=== PATIENT | female | born 1980 | race Caucasian/White ===

== ENCOUNTER 2017-01-24 04:04 | Inpatient (IN) | payer BC ==
[2017-01-24] MEDS ORDERED: ceFAZolin 2 GM PREMIX (*) 0 GM/0 ML BAG IVPB ONE (06:47)
[2017-01-24] MEDS ORDERED: ceFOXitin 2 GM IVPREMIX* 2 GM/50 ML BAG ONE (06:50)
[2017-01-24] MEDS ORDERED: Sodium Citrate/Citric Acid* 15 ML UDC ONE (07:47)
[2017-01-24] MEDS ORDERED: Morphine PF AMP (0.5MG/ML)* 5 MG/10 ML AMP ONE (07:52)
[2017-01-24] MEDS ORDERED: Phenylephrine IV* 40 MCG/ML 10 ML SYRINGE ONE (08:28)
[2017-01-24] MEDS ORDERED: OXYTOCIN* 10 UNITS/ML 1 ML VIAL ONE (08:28)
[2017-01-24] MEDS ORDERED: Scopolamine 1.5 mg* PATCH TRANSDERM PRN (08:44)
[2017-01-24] MEDS ORDERED: fentaNYL* 50 MCG/ML 2 ML VIAL (100 MCG VIAL) IV PRN (08:44)
[2017-01-24] MEDS ORDERED: Ondansetron INJ* 2 MG/ML VIAL IV PRN ×2 (08:44→08:47)
[2017-01-24] MEDS ORDERED: DiMENhydriNATE IV* 50 MG/ML VIAL IV PUSH PRN ×2 (08:44→08:47)
[2017-01-24] MEDS ORDERED: HYDROcodone/ACETAMIN 5-325 MG* 1 TAB PO PRN (08:44)
[2017-01-24] MEDS ORDERED: HYDROmorphone INJ* 1 MG/ML CARPUJECT SYRINGE IV PRN (08:44)
[2017-01-24] MEDS ORDERED: oxyCODONE TAB* 5 MG TAB PO PRN (08:44)
[2017-01-24] MEDS ORDERED: Buffered Lidocaine 0.9% SYRIN* 5 ML/SYR SYRINGE INTRADERM ONE (08:46)
[2017-01-24] MEDS ORDERED: Sodium Citrate/Citric Acid* 15 ML UDC PO ONE (08:46)
[2017-01-24] MEDS ORDERED: Naloxone* 2 MG in NS 0.9% 250 ML* 250 ML IV PRN (08:47)
[2017-01-24] MEDS ORDERED: oxyCODONE/Acetamin 5/325 MG* TAB PO PRN (08:47)
[2017-01-24] MEDS ORDERED: Naloxone* 0.4 MG/ML 1 ML VIAL IV PRN (08:47)
[2017-01-24] MEDS ORDERED: Ketorolac INJ* 30 MG/ML 1 ML VIAL ONE (08:54)
[2017-01-24] MEDS ORDERED: Ondansetron INJ* 2 MG/ML VIAL ONE (08:56)
[2017-01-24] MEDS ORDERED: Witch Hazel PAD* JAR TOPICAL PRN (09:33)
[2017-01-24] MEDS ORDERED: Glycerin ADULT SUPP PR PRN (09:33)
[2017-01-24] MEDS ORDERED: Dibucaine 1% 28.35 GM TUBE PR PRN (09:33)
[2017-01-24] MEDS ORDERED: Oxytocin in LR* 20 UNITS/1,000 ML BAG IVPB SCH (10:00)
[2017-01-24] MEDS: diPHENhydraMINE IV* 50 MG/ML 1 ml VIAL (BENADRYL) IV PRN ×3 (10:39→22:47)
[2017-01-24] MEDS: HYDROcodone/ACETAMIN 5-325 MG* 1 TAB PO PRN ×3 (10:53→20:20)
[2017-01-24] MEDS: Nalbuphine* 20 MG/ML 1 ML VIAL IV PRN ×2 (13:14→19:26)
[2017-01-24] MEDS: Simethicone TAB* 80 MG TAB.CHEW PO SCH ×3 (13:40→22:42)
[2017-01-24] MEDS: Ketorolac INJ* 30 MG/ML 1 ML VIAL IV PRN ×2 (16:26→22:47)
[2017-01-24] MEDS: Docusate CAP* 100 MG PO SCH ×2 (20:15→20:21)
[2017-01-25] MEDS ORDERED: Acetaminophen TAB* 325 MG PO PRN (00:47)
[2017-01-25] MEDS: oxyCODONE/Acetamin 5/325 MG* TAB PO PRN ×6 (01:05→23:47)
--- NOTE | 2017-01-25 01:36 | OP ---
OPERATIVE REPORT: DATE OF OPERATION: 01/24/17 DATE OF : 82 SURGEON: Augusta Dorantes MD THERMOPLASTIC TECHNICIAN: Luiz Barth MD PRE-OP DIAGNOSES: Intrauterine at 39 plus weeks, desires repeat section and anahy res permanent sterility. POST-OP DIAGNOSES: Intrauterine at 39 plus weeks, desires repeat section and aynique ires permanent sterility. Delivered. OPERATIVE PROCEDURE: Repeat low transverse section and bilateral fallopian tube fimbriecto my. ESTIMATED BLOOD LOSS: 800 cc. URINE OUTPUT: 200 cc of clear yellow urine. FLUIDS: 2500 cc of crystalloid. FINDINGS: Revealed vertex male , Apgars 9 at 1 minute and 9 at 5 minutes. Weight 7 pounds 8 o unces. No nuchal cord. No meconium. Placenta manually extracted. Three-vessel cord intact. Uter us normal appearance. Uterine cavity without evidence of retained membranes or placental tissue. N ormal appearing tubes and ovaries bilaterally. COMPLICATIONS: None apparent. DISPOSITION: Stable to recovery room. DESCRIPTION OF PROCEDURE: The patient placed in dorsal lithotomy position. The abdomen was prepped and draped in a sterile standard fashion. Anesthesia was tested to appropriate level. The patient was identified with universal protocol. Incision was made through the prior incision. This was car ried down through the fascia. Fascia was scored in the midline and extended laterally and superiorl y using Etienne scissors, bluntly and sharply, superiorly and inferiorly and the peritoneum w as then entered bluntly. The peritoneal incision was extended bluntly. The bladder blade was inser rosa. Lower uterine segment was identified, tented up with an Allis and incision was made with scalp el. This was carried down through to membrane. The incision was extended laterally and superiorly using bandage scissors. Amniotomy was created for clear fluid. The head was delivered vertex. No nuchal cord. Anterior and posterior shoulder delivered. Cord was allowed to pulse for approximatel y 60 seconds, then clamped and then the cord was cut. Appropriate cord blood was obtained. The inf ant was handed off to awaiting hiv counselor. Placenta was then manually extracted. Uterus was ext eriorized. The uterine cavity was wiped clean and noted to be fee of any membranes or placental tiss ue. Uterine incision itself was reapproximated in 2 layers, the first layer running locked, second layer running imbricated 0 Vicryl of figure-of- eight in the midline and was placed for hemostasis. Attention was then focussed to the tubal ligation. The right tube was approached first, clamped ac ross the base of the mesosalpinx to incorporate the fimbria. 0 Vicryl x2 was applied, first was lig ature suture and the second was Tomer for complete approximation of the distal end of the tube. Th e fimbria was then excised with Metzenbaum scissors. The same approach was used on the left distal fallopian tube with removal of the fimbria using 0 Vicryl free tie and Tomer stitch. The uterus w as returned intraabdominally. Colic gutters were lavaged. Hemostasis was assured at the hysterotom y site. The peritoneum was reapproximated using 3-0 Vicryl in a running fashion. The prefascial ar ea was visualized and noted to be hemostatic. The fascia itself was reapproximated using 0 Vicryl x 2 in a running fashion. The subcu was lavaged. Hemostasis was assured with Bovie coagulation. The Camper's fascia was reapproximated using 3-0 Vicryl in an interrupted fashion. The skin was then r eapproximated with 4-0 Monocryl in a subcuticular fashion. Mastisol and Steri- Strips were applied. All sponge, needle, instrument, and blade counts were correct throughout the entire case. The [facility] ient was taken to recovery room in stable condition. [id number]/[facility] #: [id number]
[2017-01-25] MEDS: diPHENhydraMINE PO* 50 MG PO PRN ×3 (02:00→16:01)
[2017-01-25] MEDS: Ibuprofen TAB* 600 MG PO PRN ×3 (08:11→20:41)
[2017-01-25] MEDS: Docusate CAP* 100 MG PO SCH ×3 (08:46→19:46)
[2017-01-25] MEDS: Simethicone TAB* 80 MG TAB.CHEW PO SCH ×4 (08:46→21:53)
[2017-01-25 09:46] LABS: Hematocrit 29 % (35-47); Hemoglobin 9.2 g/dl (12.0-16.0); Mean Corpuscular HGB Conc 32 g/dl (31-36); Mean Corpuscular Hemoglobin 21 pg (27-31); Mean Platelet Volume 8 um3 (7.4-10.4); Red Blood Count 4.39 10^6/ul (4.0-5.4); Red Cell Distribution Width 18 % (10.5-15); White Blood Count 12.4 10^3/ul (3.5-10.8)
[2017-01-25 09:48] LABS: Comments Flag Yes; Mean Corpuscular Volume 65 fL (80-97)
[2017-01-25] MEDS: Ferrous Gluconate TAB* 324 MG TAB PO SCH ×2 (10:10→20:41)
[2017-01-26] MEDS: oxyCODONE/Acetamin 5/325 MG* TAB PO PRN ×7 (00:13→22:30)
[2017-01-26] MEDS: diPHENhydraMINE PO* 50 MG PO PRN ×4 (00:16→22:30)
[2017-01-26] MEDS: Ibuprofen TAB* 600 MG PO PRN ×3 (07:43→19:48)
[2017-01-26] MEDS: Simethicone TAB* 80 MG TAB.CHEW PO SCH ×4 (09:52→19:48)
[2017-01-26] MEDS: Docusate CAP* 100 MG PO SCH ×3 (09:52→19:48)
[2017-01-26] MEDS: Ferrous Gluconate TAB* 324 MG TAB PO SCH ×2 (10:36→19:48)
[2017-01-27] MEDS: Ibuprofen TAB* 600 MG PO PRN ×3 (01:55→15:19)
[2017-01-27] MEDS: oxyCODONE/Acetamin 5/325 MG* TAB PO PRN ×4 (01:55→15:20)
[2017-01-27] MEDS ORDERED: Ondansetron ODT TAB* 4 MG PO PRN (01:56)
[2017-01-27] MEDS: diPHENhydraMINE PO* 50 MG PO PRN (06:03)
[2017-01-27] MEDS ORDERED: Gabapentin CAP(*) 100 MG PO ONE (06:18)
[2017-01-27 08:05] VITALS: BP 114/61
[2017-01-27] MEDS ORDERED: Scopolomine PATCH Remove* 1 NOTE MISC PATCH OFF ONE (08:45)
[2017-01-27] MEDS: Simethicone TAB* 80 MG TAB.CHEW PO SCH (09:00)
[2017-01-27] MEDS: Ferrous Gluconate TAB* 324 MG TAB PO SCH (09:00)
[2017-01-27] MEDS: Docusate CAP* 100 MG PO SCH (09:48)
== END 2017-01-27 15:52 | disposition home or self-care (01) | DRG 540 ==
LOC: MCHOB 04:04 → UNDOADMIN 04:04 → MCHOB 06:13
PROVIDERS: ADMIT Obstetrics & Gynecology; ATTEND Obstetrics & Gynecology
PROC: 4A1HXCZ Monitoring of Products of Conception, Cardiac Rate, External Approach (ICD-10-PCS; 2017-01-24)
PROC: 0UB70ZZ Excision of Bilateral Fallopian Tubes, Open Approach (ICD-10-PCS; 2017-01-24)
PROC: 10D00Z1 Extraction of Products of Conception, Low, Open Approach (ICD-10-PCS; principal; 2017-01-24 07:45)
DX: O34.219 Maternal care for unspecified type scar from previous cesarean delivery (principal); O75.3 Other infection during labor; N39.0 Urinary tract infection, site not specified; Z68.41 Body mass index [BMI] 40.0-44.9, adult; O99.844 Bariatric surgery status complicating childbirth; D64.9 Anemia, unspecified; O99.02 Anemia complicating childbirth; O99.214 Obesity complicating childbirth; E66.9 Obesity, unspecified; Z30.2 Encounter for sterilization; Z3A.39 39 weeks gestation of pregnancy; Z37.0 Single live birth; Z87.891 Personal history of nicotine dependence
CPT/HCPCS: 36415; 85025; 88302; A9270-GY; J0690; J0694; J1200; J1885; J2300; J2405; J2590

== ENCOUNTER 2017-05-08 08:59 | Emergency (ER) | payer BC ==
[2017-05-08 09:15] VITALS: BP 126/70
--- NOTE | 2017-05-08 09:44 | UC ---
Throat Pain/Nasal Itz HPI - HPI Summary HPI Summary: Patient presents with complaints of sore throat and right ear pain for 2 days. She denies fever, chills, nausea, vomiting, diarrhea, abdominal or chest pain. She states her throat pain has gotten worse each day. She is able to eat, drink and handle her own sections. - History of Current Complaint Chief Complaint: UCGeneralIllness Stated Complaint: SORE THROAT HEADACHE EAR PAIN Time Seen by Provider: 05/08/17 09:27 Hx Obtained From: Patient Hx Last Menstrual Period: 05/07/17 Onset/Duration: Gradual Onset, Lasting Days Severity: Moderate Pain Intensity: 9 Cough: None Associated Signs & Symptoms: Positive: Nasal Discharge - Epiglottits Risk Factors Epiglottis Risk Factors: Negative - Allergies/Home Medications Allergies/Adverse Reactions: Allergies Allergy/AdvReac Type Severity Reaction Status Date / Time No Known Allergies Allergy Verified 05/08/17 09:10 PMH/Surg Hx/FS Hx/Imm Hx Previously Healthy: Yes Other History Of: Negative For: Anticoagulant Therapy - Surgical History Surgical History: Yes Surgery Procedure, Year, and Place: GASTRIC BYPASS 2009 - Family History Known Family History: Negative: Cardiac Disease - Social History Occupation: Employed Full-time Lives: With Family Alcohol Use: None Substance Use Type: None Smoking Status (MU): Former Smoker - Immunization History Most Recent Influenza Vaccination: 12/20/16 Most Recent Pneumonia Vaccination: Unknown Review of Systems Constitutional: Negative Skin: Negative Eyes: Negative ENT: Sore Throat, Ear Ache Respiratory: Negative Cardiovascular: Negative Gastrointestinal: Negative Genitourinary: Negative Motor: Negative Neurovascular: Negative Musculoskeletal: Negative Neurological: Negative Psychological: Negative Is Patient Immunocompromised?: No All Other Systems Reviewed And Are Negative: Yes Physical Exam Triage Information Reviewed: Yes Appearance: Well-Appearing Vital Signs: Initial Vital Signs Temp 98 F 05/08/17 09:11 Pulse 90 05/08/17 09:11 Resp 18 05/08/17 09:11 BP 126/70 05/08/17 09:11 Pulse Ox 98 05/08/17 09:11 Vital Signs Reviewed: Yes Eye Exam: Normal ENT Exam: Normal ENT: Positive: Pharyngeal erythema, Other - tonsilar nodes 2+ and equal. Neck exam: Normal Neck: Positive: 1 Respiratory Exam: Normal Respiratory: Positive: Lungs clear, Normal breath sounds, No respiratory distress Cardiovascular Exam: Normal Cardiovascular: Positive: RRR, No Murmur Abdominal Exam: Normal Musculoskeletal Exam: Normal Neurological Exam: Normal Psychological Exam: Normal Skin Exam: Normal Throat Pain/Nasal Course/Dx - Course Course Of Treatment: Patient presents with complaints of painful sore throat x 2 days. Normal vital signs and nontoxic appearance. Clinical findings are consistent with pharyngitis and she will be treated with Amoxicillin 500 mg by mouth three times daily for 10 days. She was discharged in stable condition. - Differential Dx/Diagnosis Differential Diagnosis/HQI/PQRI: Pharyngitis Provider Diagnoses: pharyngitis Discharge - Discharge Plan Condition: Stable Disposition: HOME Prescriptions: Amoxicillin PO (*) [Amoxicillin 500 MG CAP*] 500 mg PO TID #30 cap Patient Education Materials: Pharyngitis (ED) Referrals: No Primary Care Phys,NOPCP [Primary Care Provider] -
== END 2017-05-08 09:41 | disposition home or self-care (01) ==
LOC: UCEAST 08:59
DX: J02.9 Acute pharyngitis, unspecified (principal); H92.01 Otalgia, right ear; Z98.84 Bariatric surgery status; Z87.891 Personal history of nicotine dependence
CPT/HCPCS: 99211; G0463

== ENCOUNTER 2018-03-12 13:35 | Inpatient (IN) | payer BC ==
[2018-03-12] MEDS ORDERED: Nicotine Inhaler* 10 MG AMP INH PRN (13:57)
--- NOTE | 2018-03-12 14:29 | ED ---
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 The patient feels like she is in a dream and exhibits a flat affect when she talks. Patient reports fatigue, past trauma, and photophobia. Pt states that she took 12 extra strength NyQuil and 15 (.5) Clonazepam earlier today. The pts last suicide attempt was as a child, but she says she, did it for attention the last time. She was last admitted to a psych hospital as a child. She states that the reason she is this sad is because of past and present relationship trauma in addition to severe depression. She states that she is going to therapy and has been taking medication for the last 3 weeks. PMHX Depression. SHX Two children. Home Medications Medication Instructions Recorded Confirmed Type Ibuprofen TAB* [Motrin TAB* 600 MG] 600 mg PO Q6H PRN #30 tab 01/27/17 05/08/17 Rx Amoxicillin PO (*) [Amoxicillin 500 mg PO TID #30 cap 05/08/17 Rx 500 MG CAP*] - History Of Current Complaint Chief Complaint: EDOverdose Time Seen by Provider: 03/12/18 13:51 Hx Obtained From: Patient Hx Last Menstrual Period: 05/07/17 Onset/Duration: Sudden Onset Timing: Constant Severity Initially: Severe Severity Currently: Mild Character: Depressed Aggravating Factor(s): Recent Stress Related History: Positive For: Prior Psychiatric Issues - depression, past suicide attempt Has Suicidal: Reports: Demonstrates Gesture, Has Prior Attempt(s) Ingestion History: Type/Name Of Drug - clonazepam and nyquil - Allergies/Home Medications Allergies/Adverse Reactions: Allergies Allergy/AdvReac Type Severity Reaction Status Date / Time No Known Allergies Allergy Verified 05/08/17 09:10 PMH/Surg Hx/FS Hx/Imm Hx Endocrine/Hematology History: Denies: Hx Anticoagulant Therapy, Hx Diabetes, Hx Thyroid Disease Cardiovascular History: Denies: Hx Congestive Heart Failure, Hx Hypertension Respiratory History: Denies: Hx Asthma, Hx Chronic Obstructive Pulmonary Disease (COPD) GI History: Reports: Other GI Disorders - S/P GASTRIC BYPASS 2010 Denies: Hx Ulcer History: Reports: Hx Kidney Stones Denies: Hx Renal Disease, Other Problems/Disorders Sensory History: Denies: Hx Contacts or Glasses, Hx Hearing Aid Opthamlomology History: Denies: Hx Contacts or Glasses Psychiatric History: Reports: Hx Anxiety, Hx Eating Disorder, Hx Depression - Surgical History Surgery Procedure, Year, and Place: GASTRIC BYPASS 2010 Hx Anesthesia Reactions: No Infectious Disease History: No Infectious Disease History: Denies: Hx Hepatitis, Hx Human Immunodeficiency Virus (HIV), Traveled Outside the [place] in Last 30 Days - Family History Known Family History: Negative: Cardiac Disease - Social History Alcohol Use: None Substance Use Type: Reports: None Smoking Status (MU): Former Smoker Review of Systems Positive: Fatigue Positive: Photophobia Positive: Depressed All Other Systems Reviewed And Are Negative: Yes Physical Exam - Summary Physical Exam Summary: GENERAL: Patient is a well-developed and nourished female who is lying comfortable in the stretcher. Patient is not in any acute respiratory distress. HEAD AND FACE: Normocephalic EYES: PERRLA, EOMI x 2. EARS: Hearing grossly intact. MOUTH: Oropharynx within normal limits. NECK: Supple, trachea is midline, no adenopathy, no JVD, no carotid bruit. CHEST: Symmetric, no tenderness at palpation LUNGS: Clear to auscultation bilaterally. No wheezing or crackles. CVS: Regular rate and rhythm, S1 and S2 present, no murmurs or gallops appreciated. ABDOMEN: Soft, non-tender. Bowel sounds are normal. No abdominal abnormal pulsations. EXTREMITIES: Full ROM in all major joints, no edema, no cyanosis or clubbing. NEURO: Alert and oriented x 3. No acute neurological deficits. Speech is normal and follows commands. SKIN: Dry and warm PSYCH: sad affect, positive SI with attempt, no HI Triage Information Reviewed: Yes Vital Signs On Initial Exam: Initial Vitals Temp Pulse Resp BP Pulse Ox 97.4 F 77 16 138/81 93 03/12/18 13:49 03/12/18 13:49 03/12/18 13:49 03/12/18 13:49 03/12/18 13:49 Vital Signs Reviewed: Yes Diagnostics - Vital Signs Vital Signs Temp Pulse Resp BP Pulse Ox 03/12/18 13:49 97.4 F 77 16 138/81 93 - Laboratory Result Diagrams: 03/12/18 14:21 03/12/18 14:21 Lab Statement: Any lab studies that have been ordered have been reviewed, and results considered in the medical decision making process. - EKG 14:02 Cardiac Rate: NL - 73 bpm EKG Rhythm: Sinus Rhythm Summary of EKG Findings: Normal intervals Re-Evaluation - Re-Evaluation First Eval Re-Evaluation Time: 15:15 Comment: The patient's tylenol is at 105, 3 hours after injection. Based on nomogram, NAC is not needed at this time. Will repeat the Tylenol at 4:15, but the patient has been cleared for admission by Dr. Da Silva. 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 The patient feels like she is in a dream and exhibits a flat affect when she talks. Patient reports fatigue, past trauma, and photophobia. An EKG reveals NSR 73 bpm, Normal intervals. Test results with no significant abnormalities except Acetaminophen 106 H. In the ED course the patient was given a Nicotine inhaler. We discussed patient care with Dr Da Silva, hospitalist and they recommended admission. The patient is agreeable with this plan. - Differential Dx/Clinical Impression Provider Diagnosis: Intentional overdose of drug in tablet form - Physician Notifications Discussed Care Of Patient With: Sujey Da Silva Time Discussed With Above Provider: 15:20 Instructed by Provider To: Admit As Inpatient Discharge - Sign-Out/Discharge Documenting (check all that apply): Patient Departure - admission - Discharge Plan Condition: Stable Disposition: ADMITTED TO [facility] - Billing Disposition and Condition Condition: STABLE Disposition: Admitted to [facility] - Attestation Statements Document Initiated by Maiiblynn: Yes Documenting Scribe: Caleb Arceo Provider For Whom Alma is Documenting (Include Credential): Nikkie Enciso MD Scribe Attestation: Caleb Rios scribed for Nikkie Enciso MD on 03/12/18 at 1759. Scribe Documentation Reviewed: Yes Provider Attestation: The documentation as recorded by the Caleb godwin accurately reflects the service I personally performed and the decisions made by me, Nikkie Enciso MD Status of Scribe Document: Viewed
[2018-03-12 14:34] LABS: ABS Basophils 0 10^3/ul (0-0.2); ABS Eosinophils 0.1 10^3/ul (0-0.6); ABS Lymphocytes 1.3 10^3/ul (1.0-4.8); ABS Monocytes 0.5 10^3/ul (0-0.8); ABS Neutrophils 5.2 10^3/ul (1.5-7.7); ABS Nucleated RBC 0 10^3/ul; Hematocrit 32 % (35-47); Hemoglobin 9.9 g/dl (12.0-16.0); Lymphocyte % 18.7 %; Mean Corpuscular HGB Conc 31 g/dl (31-36); Mean Corpuscular Hemoglobin 19 pg (27-31); Mean Corpuscular Volume 61 fL (80-97); Mean Platelet Volume 9.3 fL (7.4-10.4); Nucleated Red Blood Cells % 0; Platelet Count 375 10^3/ul (150-450); Red Blood Count 5.28 10^6/ul (4.00-5.40); Red Cell Distribution Width 19 % (10.5-15); White Blood Count 7.2 10^3/ul (3.5-10.8)
[2018-03-12 14:51] LABS: EGFR Non-African American 83.6 (>60)
[2018-03-12] MEDS ORDERED: Docusate CAP* 100 MG PO PRN (17:03)
[2018-03-12] MEDS ORDERED: Al Hydrox/Mg Hydrox/Simet LIQ* 30 ML UDC PO PRN (17:03)
[2018-03-12] MEDS ORDERED: Senna TAB PO PRN (17:03)
[2018-03-12 17:05] LABS: Urine Appearance Cloudy; Urine Blood 3+ (Negative); Urine Color Amber; Urine Ketones 1+ (Negative); Urine Protein 2+(100 mg/dL) (Negative); Urine Red Blood Cell 3+(>10/hpf) (Absent); Urine Specific Gravity 1.043 (1.010-1.030); Urine Urobilinogen Negative (Negative); Urine White Blood Cell Trace(0-5/hpf) (Absent)
[2018-03-12] MEDS ORDERED: Acetylcysteine IV* 10,000 MG in D5W 1000 ML BAG* 1,000 ML IVPB ONE (17:09)
[2018-03-12] MEDS ORDERED: Acetylcysteine IV* 5,000 MG in D5W 500 ML BAG* 500 ML IVPB ONE ×2 (17:09→20:45)
[2018-03-12] MEDS ORDERED: Acetylcysteine IV* 15,000 MG in D5W 250 ML BAG* 200 ML IVPB ONE (17:09)
[2018-03-12] MEDS: NS 0.9% 1000 ML* 1,000 ML IV SCH ×2 (18:40→22:36)
[2018-03-12] MEDS: Ondansetron INJ* 2 MG/ML VIAL IV PRN (20:46)
[2018-03-12] MEDS ORDERED: Albuterol/Ipratropium NEB.SOL* Albuterol 2.5 MG/Ipratropium 0.5 MG 3 ML ONE (23:39)
[2018-03-12] MEDS ORDERED: Albuterol 2.5 MG/3 ML NEB.SOL* (0.083%) INH ONE (23:39)
[2018-03-13] MEDS ORDERED: Acetylcysteine IV* 10,000 MG in D5W 1000 ML BAG* 1,000 ML IVPB ONE (00:45)
--- NOTE | 2018-03-13 02:06 | HP ---
CC: Yessy Gerber MD * HISTORY AND PHYSICAL: DATE OF ADMISSION: 03/12/18 PRIMARY CARE PHYSICIAN: Yessy Gerber MD CHIEF COMPLAINT: Overdose. HISTORY OF PRESENT ILLNESS: This is a 37-year-old female with past medical history of depression, remote history of suicide attempt, who presented to the emergency room after having a suicide attempt with overdose. The patient is sedated, but is able to wake up and act appropriately. She states around 3 in the morning, she took 8 tablets of Klonopin. She is not sure what the milligram dose was and then went back to bed, woke up again and took an entire box of extra strength NyQuil and the rest of the bottle of her clonazepam. She is not exactly sure of what time she took the NyQuil dose. She states that she is unhappy and this was an attempt to kill herself. She was nauseated and vomiting on the way here, no longer. No further diarrhea. No chest pain. No shortness of breath. She states she just feels out of it and very tired. She denies any verbal or physical abuse at home. She sees a psychologist who she states prescribed her the Klonopin, which she rarely takes prior to this. She states she does have a good support system at home that she is just unhappy. Otherwise, review of systems is negative. In the emergency room, the patient had labs, imaging. Poison Control was contacted and was referred to the hospitalist service for further evaluation. PAST MEDICAL HISTORY: 1. Remote history of suicide attempt, attempting with slitting her wrist. 2. Depression. MEDICATIONS: The patient takes a depression medication, she is not sure which and clonazepam as needed. ALLERGIES: No known drug allergies. SOCIAL HISTORY: The patient lives at home with her fiance, Varun, and her 2 children, 10-year-old and 1-year-old. Her healthcare proxy is her father and her fiance. No history of alcohol or illicit drug use. Code status is full code. She is a former smoker. FAMILY HISTORY: Her parents are alive and healthy. REVIEW OF SYSTEMS: A 14-point review of systems as mentioned in the HPI, otherwise negative. Also, of note, her last menstrual period was on 03/04/18, she states she gets heavy menses. PHYSICAL EXAMINATION GENERAL: No acute distress, resting comfortably. VITAL SIGNS: Temp 98.7, pulse rate 67, respiratory rate 22, oxygen saturation 97 % on room air, blood pressure 121/69. HEENT: Head: Normocephalic. Pupils are dilated and reactive. Conjunctivae injected. Oropharynx: Mucous membranes are moist. NECK: Supple. No lymphadenopathy. RESPIRATORY: Clear to auscultation. No wheezes, rhonchi, or rales. CARDIAC: Regular rate and rhythm. Soft systolic murmur heard throughout. ABDOMEN: Soft, nontender, nondistended. EXTREMITIES: No clubbing, cyanosis or edema. +2 DPs. NEUROLOGICAL: Alert and oriented x3. No gross focal neurologic deficits. DIAGNOSTIC STUDIES/LABORATORY DATA: White count 7.2, hemoglobin 9.9, hematocrit 32, platelets 375. Sodium 138, potassium 3.6, chloride 108, bicarb 24, BUN 12, creatinine 0.78, glucose 93. TSH 2.52. Beta-hCG less than 6. Radiographic Data: EKG shows normal sinus rhythm, a QTc of 435. ASSESSMENT: This is a 37-year-old female with past medical history of depression and suicide attempt who presented to the emergency room after having an intentional overdose. 1. Intentional overdose. Assessment: The patient's Tylenol level was initially 106, repeat 2 hours later was 74, positive for cannabinoids as well. Remaining tox screen was negative. Because of the concern of unclear when she took the NyQuil. Based on the nomogram, I am going to start her on N-acetyl cysteine protocol. Plan will be admit to ICU for the N-acetyl cysteine. She needs labs drawn 16 hours once the infusion is started. We will order a CBC, CMP for that time. We will also have a constant baggage porter with her, Social Work consult and Psych consult for when she is medically cleared. 2. Chronic medical problems. Depression. We will obtain a med rec to determine what she is taking and determine if it is safe in the setting of her overdose and follow up with Psych's recommendations. 3. FEN: The patient scores low risk. We will place her on SCDs. 4. Code status: Full code. PATIENT TIME: Greater than 40 minutes was spent doing the history and physical , more than half the time was spent in direct patient contact. [id number]/[facility] #: [id number] MISSY
[2018-03-13] MEDS: NS 0.9% 1000 ML* 1,000 ML IV SCH ×3 (06:02→22:18)
[2018-03-13] MEDS: Ondansetron INJ* 2 MG/ML VIAL IV PRN (10:36)
[2018-03-13] MEDS: Ibuprofen TAB* 600 MG PO PRN (10:41)
--- NOTE | 2018-03-13 16:35 | PN ---
Subjective Date of Service: 03/13/18 Interval History: Minor somatic complaints. Ate well Objective Active Medications: Al Hydrox/Mg Hydrox/Simethicone (Maalox Plus*) 30 ml PO Q6H PRN PRN Reason: INDIGESTION Docusate Sodium (Colace Cap*) 100 mg PO BID PRN PRN Reason: CONSTIPATION Sodium Chloride (Ns 0.9% 1000 Ml*) 1,000 mls @ 125 mls/hr IV PER RATE MEENAKSHI Last Admin: 03/13/18 13:56 Dose: 125 mls/hr Acetylcysteine 10,000 mg/ (Dextrose) 1,050 mls @ 65.625 mls/hr IVPB ONCE ONE Stop: 03/13/18 16:44 Last Admin: 03/13/18 03:01 Dose: 65.625 mls/hr Ibuprofen (Motrin Tab*) 600 mg PO Q8H PRN PRN Reason: PAIN Last Admin: 03/13/18 10:41 Dose: 600 mg Influenza Virus Vaccine (Fluarix *Quad* *) 0.5 ml IM .ONCE ONE Stop: 03/14/18 09:01 Nicotine (Nicotine Inhaler*) 10 mg INH Q2H PRN PRN Reason: CRAVING Ondansetron HCl (Zofran Inj*) 4 mg IV Q4H PRN PRN Reason: NAUSEA/VOMITING Last Admin: 03/13/18 10:36 Dose: 4 mg Senna (Senokot Tab*) 1 tab PO BID PRN PRN Reason: CONSTIPATION Vital Signs - 8 hr 03/13/18 03/13/18 03/13/18 09:00 10:00 11:00 Temperature Respiratory 18 23 15 Rate Blood Pressure 142/87 128/75 (mmHg) 03/13/18 03/13/18 03/13/18 11:23 11:35 12:00 Temperature 98.3 F Respiratory 19 17 Rate Blood Pressure 135/73 134/78 (mmHg) 03/13/18 03/13/18 03/13/18 13:00 13:01 14:00 Temperature Respiratory 15 25 25 Rate Blood Pressure 140/75 142/81 (mmHg) 03/13/18 03/13/18 15:00 16:00 Temperature Respiratory 26 23 Rate Blood Pressure 140/74 (mmHg) Oxygen Devices in Use Now: None Appearance: Alert, sitting up in ICU bed. Somewhat anxious, otherwise looks comfortable. Eyes: No Scleral Icterus Extremities: No Edema, No Clubbing, Cyanosis Skin: No Rash or Ulcers, No Nodules or Sclerosis, - - many tattoos Neurological: Alert and Oriented x 3, NL Sensation Result Diagrams: 03/12/18 14:21 03/12/18 14:21 Microbiology and Other Data: Microbiology 03/12/18 18:55 Nasal Screen MRSA (PCR) - Final Nasal Mrsa Not Detected Assess/Plan/Problems-Billing Assessment: - Patient Problems (1) Acetaminophen overdose Current Visit: Yes Status: Acute Code(s): T39.1X1A - POISONING BY 4- AMINOPHENOL DERIVATIVES, ACCIDENTAL, INIT SNOMED Code(s): 171780614 Comment: Repeat LFT's pending. Discussed with Dr. Hooks. Likely can go to [facility] 03/14. Anticipate completing acetylcysteine infusion 03/13.
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
[2018-03-13 22:41] LABS: Hematocrit 28 % (35-47); Hemoglobin 8.7 g/dl (12.0-16.0); Mean Corpuscular HGB Conc 31 g/dl (31-36); Mean Corpuscular Hemoglobin 19 pg (27-31); Mean Corpuscular Volume 61 fL (80-97); Mean Platelet Volume 8.7 fL (7.4-10.4); Platelet Count 291 10^3/ul (150-450); Red Blood Count 4.55 10^6/ul (4.00-5.40); Red Cell Distribution Width 19 % (10.5-15); White Blood Count 5.3 10^3/ul (3.5-10.8)
[2018-03-13 23:32] LABS: ABS Basophils 0 10^3/ul (0-0.2); ABS Eosinophils 0.1 10^3/ul (0-0.6); ABS Lymphocytes 3.1 10^3/ul (1.0-4.8); ABS Monocytes 0.5 10^3/ul (0-0.8); ABS Neutrophils 1.6 10^3/ul (1.5-7.7); ABS Nucleated RBC 0 10^3/ul; Eosinophil % 1.8 %; Lymphocyte % 58.1 %; Nucleated Red Blood Cells % 0.1
[2018-03-14] MEDS: Ibuprofen TAB* 600 MG PO PRN (05:14)
[2018-03-14] MEDS ORDERED: Mouth Piece, Nicotine* 1 EACH CARTRIDGE ONE (06:09)
[2018-03-14] MEDS: NS 0.9% 1000 ML* 1,000 ML IV SCH (06:13)
[2018-03-14] MEDS ORDERED: traMADol TAB* 50 MG PO PRN (07:29)
[2018-03-14] MEDS: Ondansetron INJ* 2 MG/ML VIAL IV PRN (09:51)
[2018-03-14 11:49] VITALS: BP 118/66
[2018-03-14] MEDS ORDERED: Ondansetron ODT TAB* 4 MG SL PRN (12:57)
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
== END 2018-03-14 15:20 | DRG 812 ==
LOC: ED 13:35 → ICU 17:03 → MED 03-13 20:30
PROVIDERS: ADMIT Pediatrics; ATTEND Internal Medicine
DX: T39.1X2A Poisoning by 4-Aminophenol derivatives, intentional self-harm, initial encounter (principal); F33.2 Major depressive disorder, recurrent severe without psychotic features; T42.4X2A Poisoning by benzodiazepines, intentional self-harm, initial encounter; F43.10 Post-traumatic stress disorder, unspecified; X58.XXXA Exposure to other specified factors, initial encounter; E66.9 Obesity, unspecified; Z79.899 Other long term (current) drug therapy; Z87.891 Personal history of nicotine dependence; Y92.9 Unspecified place or not applicable; Z68.37 Body mass index [BMI] 37.0-37.9, adult; Z98.84 Bariatric surgery status; Z81.8 Family history of other mental and behavioral disorders
CPT/HCPCS: 36415; 80053; 80076; 80307; 80320; 80329; 81003; 81015; 82248; 82728; 83540; 83550; 83605; 84443; 84484; 84702; 85025; 85060; 87086; 87641; 90686; 93005; 94640; 99285; A9270-GY; G0480; J0132; J2405; J7060

== ENCOUNTER 2018-03-14 13:31 | Inpatient (IN) | payer BC ==
[2018-03-14] MEDS ORDERED: Al Hydrox/Mg Hydrox/Simet LIQ* 30 ML UDC PO PRN (14:32)
--- OUTSIDE RECORDS SUMMARY | 2018-03-14 15:40 | XMS REPORT | Continuity of Care Document ---
:1980 External Reference #:[id number] Demographics Phone Unavailable Preferred Language Unknown Marital Status Unknown Yazidi Affiliation Unknown Race Unknown Ethnic Group Unknown Author Name Bethany Koroma Care Team Providers Name Role Phone Horacio Motta M.D. 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 Payers Description No Information Available Advance Directives Description No Information Available Problems Description No Information Family History Description No Information Available Social History Type Date Description Comments Sex Unknown Allergies, Adverse Reactions, Alerts Description No Information Medications Description No Information Immunizations Description No Information Available Vital Signs Description No Information Available Results Description No Information Available Procedures Description No Information Available Encounters Description No Information Available Plan of Treatment No Information Available
[2018-03-14] MEDS: Sertraline* 50 MG TAB PO SCH (15:54)
[2018-03-15] MEDS: Acetaminophen TAB* 325 MG PO PRN ×3 (01:50→20:33)
[2018-03-15 08:35] LABS: HDL Cholesterol 60.5 mg/dL
[2018-03-15] MEDS: Sertraline* 50 MG TAB PO SCH (09:23)
[2018-03-15] MEDS: hydrOXYzine HCL TAB* 50 MG PO PRN (22:05)
[2018-03-16] MEDS: Acetaminophen TAB* 325 MG PO PRN (08:56)
[2018-03-16] MEDS: Sertraline* 50 MG TAB PO SCH (08:56)
[2018-03-16] MEDS: hydrOXYzine HCL TAB* 50 MG PO PRN (11:03)
[2018-03-16] MEDS: Caffeine Citrate ORAL* 20 MG/ML ORAL.SOLN 3 ML (preservative free) PO SCH (12:36)
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
[2018-03-16] MEDS: clonazePAM TAB(*) 0.5 MG PO PRN (21:52)
[2018-03-17] MEDS: clonazePAM TAB(*) 0.5 MG PO PRN ×3 (00:18→21:26)
[2018-03-17] MEDS: Acetaminophen TAB* 325 MG PO PRN (09:10)
[2018-03-17] MEDS: Sertraline* 50 MG TAB PO SCH (09:10)
[2018-03-17] MEDS: Caffeine Citrate ORAL* 20 MG/ML ORAL.SOLN 3 ML (preservative free) PO SCH (11:30)
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
[2018-03-18] MEDS: Sertraline* 50 MG TAB PO SCH (09:03)
[2018-03-18] MEDS: Caffeine Citrate ORAL* 20 MG/ML ORAL.SOLN 3 ML (preservative free) PO SCH (09:04)
[2018-03-18] MEDS: clonazePAM TAB(*) 0.5 MG PO PRN ×3 (13:43→21:30)
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
[2018-03-19] MEDS: Sertraline* 50 MG TAB PO SCH (10:32)
[2018-03-19] MEDS: Caffeine Citrate ORAL* 20 MG/ML ORAL.SOLN 3 ML (preservative free) PO SCH (11:34)
[2018-03-19] MEDS: clonazePAM TAB(*) 0.5 MG PO PRN ×3 (15:46→22:32)
[2018-03-20] MEDS: Caffeine Citrate ORAL* 20 MG/ML ORAL.SOLN 3 ML (preservative free) PO SCH (09:03)
[2018-03-20] MEDS: Sertraline* 50 MG TAB PO SCH (09:04)
[2018-03-20] MEDS: clonazePAM TAB(*) 0.5 MG PO PRN ×3 (09:07→19:59)
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
[2018-03-20] MEDS ORDERED: clonazePAM TAB(*) 1 MG ONE (14:21)
[2018-03-20] MEDS: Acetaminophen TAB* 325 MG PO PRN (15:02)
[2018-03-20] MEDS ORDERED: clonazePAM TAB(*) 1 MG PO ONE (20:30)
[2018-03-20] MEDS ORDERED: Zolpidem TAB* 5 MG ONE (20:45)
[2018-03-20] MEDS ORDERED: Zolpidem TAB* 5 MG PO ONE (22:00)
[2018-03-21] MEDS: Sertraline* 50 MG TAB PO SCH (10:25)
[2018-03-21] MEDS: clonazePAM TAB(*) 0.5 MG PO PRN (10:26)
[2018-03-21] MEDS: Caffeine Citrate ORAL* 20 MG/ML ORAL.SOLN 3 ML (preservative free) PO SCH (10:27)
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
[2018-03-21] MEDS: clonazePAM TAB(*) 1 MG PO PRN ×2 (18:29→22:33)
[2018-03-22] MEDS: clonazePAM TAB(*) 1 MG PO PRN ×2 (09:33→18:27)
[2018-03-22] MEDS: Sertraline* 50 MG TAB PO SCH (09:33)
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
--- NOTE | 2018-03-22 16:41 | PN ---
MHU: Group Therapy Note - Service Type Service Type: [id number] Group Psychotherapy - Medication Education Group: Patient joined group and left early. She was pleasant and politely excused herself.
[2018-03-23] MEDS: Sertraline* 50 MG TAB PO SCH (09:01)
[2018-03-23 10:12] VITALS: BP 118/71
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
== END 2018-03-23 12:30 | disposition home or self-care (01) | DRG 755 ==
LOC: BSU 15:36
PROVIDERS: ADMIT Psychiatry & Neurology Psychiatry; ATTEND Psychiatry & Neurology Psychiatry
PROC: GZHZZZZ Group Psychotherapy (ICD-10-PCS; principal; 2018-03-22)
DX: F43.10 Post-traumatic stress disorder, unspecified (principal); F33.2 Major depressive disorder, recurrent severe without psychotic features; Z62.810 Personal history of physical and sexual abuse in childhood; E66.9 Obesity, unspecified; F41.9 Anxiety disorder, unspecified; Z68.30 Body mass index [BMI] 30.0-30.9, adult; Z98.84 Bariatric surgery status; Z81.8 Family history of other mental and behavioral disorders
CPT/HCPCS: 36415; 80061; 83036; 90847; 90853; 99222; 99231; 99232; 99233; 99238; A9270-GY

== ENCOUNTER → 2018-08-05 03:10 | Emergency (ER) | payer BC ==
[~2018-08-05 03:10] MED LIST: Ketorolac INJ* 30 MG/ML 1 ML VIAL IV PUSH ONE; PROCHLORPERAZINE INJ 5 MG/ML 2 ML VIAL IV ONE; diPHENhydraMINE IV* 50 MG/ML 1 ml VIAL (BENADRYL) IV ONE
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
[2018-08-05] MEDS: NS 0.9% 1000 ML** 2,000 ML IV ONE (03:59)
[2018-08-05 05:44] VITALS: BP 155/69
== END | disposition home or self-care (01) ==
LOC: ED 03:10
DX: G43.909 Migraine, unspecified, not intractable, without status migrainosus (principal); F41.9 Anxiety disorder, unspecified; F32.9 Major depressive disorder, single episode, unspecified; Z98.84 Bariatric surgery status; Z87.891 Personal history of nicotine dependence
CPT/HCPCS: 96361; 96374; 96375; 99283; J0780; J1200; J1885

== ENCOUNTER 2019-05-18 17:45 | Emergency (ER) | payer SELFPAY ==
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
[2019-05-18] MEDS ORDERED: Ondansetron ODT TAB* 4 MG SL ONE (18:08)
[2019-05-18] MEDS ORDERED: Ketorolac *IM* INJ* 60 MG/2 ML VIAL IM ONE (18:09)
[2019-05-18] MEDS ORDERED: Acetaminophen TAB* 325 MG PO ONE (18:10)
[2019-05-18 18:20] VITALS: BP 134/79
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
== END 2019-05-18 19:19 | disposition home or self-care (01) ==
LOC: UCEAST 17:45
DX: S09.90XA Unspecified injury of head, initial encounter (principal); V89.2XXA Person injured in unspecified motor-vehicle accident, traffic, initial encounter; Y92.9 Unspecified place or not applicable; M79.641 Pain in right hand; M25.562 Pain in left knee; Z87.891 Personal history of nicotine dependence
CPT/HCPCS: 70450; 70486; 72125; 81003; 99212; A9270-GY; G0463

== ENCOUNTER 2021-06-06 10:12 | Inpatient (IN) ==
[2021-06-06 11:21] LABS: ABS Eosinophils 0.2 10^3/ul (0-0.6); ABS Lymphocytes 1.3 10^3/ul (1.0-4.8); ABS Monocytes 0.4 10^3/ul (0-0.8); ABS Neutrophils 2.6 10^3/ul (1.5-7.7); Eosinophil % 3.5 %; Hematocrit 33 % (35-47); Hemoglobin 10.4 g/dL (12.0-16.0); Lymphocyte % 28.3 %; Mean Corpuscular HGB Conc 31 g/dL (31-36); Mean Corpuscular Hemoglobin 21 pg (27-31); Mean Corpuscular Volume 67 fL (80-97); Mean Platelet Volume 8.5 fL (7.4-10.4); Platelet Count 304 10^3/uL (150-450); Red Blood Count 4.93 10^6 /uL (3.70-4.87); Red Cell Distribution Width 19 % (10-15); White Blood Count 4.6 10^3/uL (3.5-10.8)
[2021-06-06 11:23] LABS: Urine Appearance Clear; Urine Bilirubin Negative (Negative); Urine Blood 2+ (Negative); Urine Color Yellow; Urine Glucose Negative (Negative); Urine Ketones Negative (Negative); Urine Nitrite Negative (Negative); Urine Protein Negative (Negative); Urine Specific Gravity 1.016 (1.002-1.030); Urine Urobilinogen Negative (Negative)
[2021-06-06 11:26] LABS: Urine Bacteria Absent (Absent); Urine Red Blood Cell 3+(>10/hpf) (Absent); Urine Squamous Epithelial Cell Present (Absent); Urine White Blood Cell Trace(0-5/hpf) (Absent)
[2021-06-06 11:57] LABS: ALT 9 U/L (7-52); AST 15 U/L (13-39); Acetaminophen < 15 mcg/mL; Albumin 4.3 g/dL (3.2-5.2); Alcohol, S < 13 mg/dL (<13); Alkaline Phosphatase 39 U/L (35-149); Anion Gap 6 mmol/L (2-11); Blood Urea Nitrogen 13 mg/dL (6-24); CO2 Carbon Dioxide 27 mmol/L (22-32); Calcium 9.3 mg/dL (8.6-10.3); Chloride 105 mmol/L (101-111); Globulin 2.2 g/dL (2-4); Glucose 88 mg/dL (70-100); Potassium 4.4 mmol/L (3.5-5.0); Salicylate < 2.50 mg/dL (<30); Sodium 138 mmol/L (135-145); Total Protein 6.5 g/dL (6.4-8.9); eGFR CKD-EPI 88.1 (>60)
[2021-06-06 11:59] LABS: Urine Benzodiazepine Screen None Detected (None Detect); Urine Cannabinoids Screen None Detected (None Detect); Urine Opiates Screen None Detected (None Detect)
[2021-06-06 12:01] LABS: HCG Pregnancy < 0.60 mIU/mL
[2021-06-06 12:10] LABS: TSH Ultra Thyroid Stim Horm 1.26 mcIU/mL (0.34-5.60)
[2021-06-06] MEDS ORDERED: Al Hydrox/Mg Hydrox/Simet LIQ 30 ML UDC PO PRN (20:14)
[2021-06-07] MEDS: Vitamin THERAPEUTIC TAB PO SCH (10:09)
[2021-06-08] MEDS: Vitamin THERAPEUTIC TAB PO SCH (09:18)
[2021-06-09 01:14] VITALS: BP 142/78
[2021-06-09] MEDS: Vitamin THERAPEUTIC TAB PO SCH (11:13)
== END 2021-06-09 16:00 | disposition home or self-care (01) | DRG 753 ==
LOC: ED 10:12 → BSU 20:14 → ED 06-07 00:21
PROVIDERS: ADMIT Psychiatry & Neurology Psychiatry; ATTEND Student in an Organized Health Care Education/Training Program